=== PATIENT | female | born 1975 | race Two or more races ===

== ENCOUNTER 2020-11-24 18:30 | Emergency (ER) | payer MEDICAID, OTHER ==
[~2020-11-24] VITALS: Ht 157.5 cm; Wt 71.2 kg
[2020-11-24 21:00] VITALS: BP 162/104
== END 2020-11-24 22:57 | disposition home or self-care (01) ==
LOC: ER 18:32
DX: S90.861A Insect bite (nonvenomous), right foot, initial encounter (principal); W57.XXXA Bitten or stung by nonvenomous insect and other nonvenomous arthropods, initial encounter; Y93.89 Activity, other specified; Y92.89 Other specified places as the place of occurrence of the external cause; Y99.8 Other external cause status